=== PATIENT | male | born 1965 | race Caucasian/White ===

== ENCOUNTER 2017-10-20 20:08 | Emergency (ER) | payer MEDICAID ==
[~2017-10-20] VITALS: Ht 172.7 cm; Wt 89.1 kg
[~2017-10-20 20:08] MED LIST: ACET-3161 GT; DIPH50TA19 PO; METF500T7 PO; TAP5 PO
[2017-10-21] MEDS ORDERED: IBUPROFEN 600MG TABLET PO ONE (02:45)
[2017-10-21 05:00] VITALS: BP 108/72
== END 2017-10-21 05:45 | disposition home or self-care (01) ==
LOC: ER 22:14
DX: M54.5 Low back pain (principal); M25.512 Pain in left shoulder; I10 Essential (primary) hypertension; E11.9 Type 2 diabetes mellitus without complications; V43.62XA Car passenger injured in collision with other type car in traffic accident, initial encounter; Y93.89 Activity, other specified; Y92.410 Unspecified street and highway as the place of occurrence of the external cause; Y99.8 Other external cause status
CPT/HCPCS: 73030; 99284; Z7610